=== PATIENT | female | born 1990 | race Caucasian/White ===

== ENCOUNTER 2018-03-05 02:08 | Emergency (ER) | payer MEDICAID ==
[~2018-03-05] VITALS: Ht 160 cm; Wt 68.9 kg
[2018-03-05] MEDS ORDERED: NKM (02:16)
[2018-03-05 03:54] LABS: APPEARANCE,URINE SLIGHTLY CLOUDY; BILIRUBIN, URINE NEGATIVE (NEGATIVE); COLOR,URINE PALE YELLOW; GLUCOSE, URINE (UA) NEGATIVE (NEGATIVE); KETONES,URINE NEGATIVE (NEGATIVE); LEUKOCYTE ESTERASE ,URINE 2+ (NEGATIVE); NITRITE,URINE NEGATIVE (NEGATIVE); PH,URINE 6 (4.5-8.0); PROTEIN,URINE 2+ (NEGATIVE); UROBILINOGEN,URINE NORMAL MG/DL (0.0-1.0)
[2018-03-05] MEDS ORDERED: Ketorolac 30mg Inj IV ONE (04:15)
--- NOTE | 2018-03-05 04:18 | Emergency Room Report ---
History of Present Illness General Chief Complaint: Abdominal Pain Source: Patient Present Illness HPI This patient c/o all day left flank/llq pain. Sharp, stabbing. Fairly severe. Abrupt onset. No similar history. No dysuria, urgency, frequency. No vag d/c. No other abd pain, no cp. Mild nausea, no vomiting. Allergies: Coded Allergies: No Known Allergies (Unverified , 03/05/18) Patient History Last Menstrual Period: January Nursing Documentation-[facility] Past Medical History: No Stated History Review of Systems Constitutional: Reports: no symptoms, see HPI Eye: Reports: no symptoms ENT: Reports: no symptoms Respiratory: Reports: no symptoms Cardiovascular: Reports: no symptoms Gastrointestinal: Reports: no symptoms Genitourinary: Reports: no symptoms Musculoskeletal: Reports: back pain Skin: Reports: no symptoms Psychiatric: Reports: no symptoms Neurological: Reports: no symptoms Endocrine: Reports: no symptoms Hematologic/Lymphatic: Reports: no symptoms Allergic: Reports: no symptoms Physical Exam Vital Signs Date Time Temp Pulse Resp B/P (MAP) Pulse Ox O2 Delivery O2 Flow Rate FiO2 03/05/18 02:12 98.2 98 18 118/80 100 Room Air 98.2 Sp02 EP Interpretation: reviewed, normal General Appearance: normal inspection, well appearing, no apparent distress, alert, GCS 15, non-toxic Head: normocephalic, atraumatic Eyes: bilateral eye normal inspection, bilateral eye PERRL, bilateral eye EOMI ENT: normal ENT inspection, hearing grossly normal, normal pharynx, no angioedema, normal voice, moist mucus membranes Neck: normal inspection, full range of motion, supple, no meningismus, no bony tend Respiratory: normal inspection, lungs clear, normal breath sounds, no rhonchi, no respiratory distress, no retraction, no accessory muscle use, no wheezing Cardiovascular #1: normal inspection, regular rate, rhythm, no edema Gastrointestinal: normal inspection, normal bowel sounds, non tender, soft, no mass, non-distended Genitourinary: CVA tenderness (L) Musculoskeletal: gait/station normal, normal range of motion Neurologic: normal inspection, alert, oriented x3, responsive, motor strength/ tone normal Psychiatric: normal inspection, judgement/insight normal, memory normal Suicide Risk Assessment: Suicidal Ideation: No Had intent to initiate attempt: No Pt's plan for suicide attempt: No Has means to complete attempt: No Skin: normal inspection, normal color, no rash, warm/dry Medical Decision Making Diagnostic Impression: Primary Impression: Renal colic on left side ER Course hx and physical entirely consistent with left renal colic good relief with iv toradol advised f/u pmd this week for renal us Last Vital Signs Date Time Temp Pulse Resp B/P (MAP) Pulse Ox O2 Delivery O2 Flow Rate FiO2 03/05/18 02:12 98.2 98 18 118/80 100 Room Air 98.2 Status: improved Disposition: HOME, SELF-CARE Referrals: NOT CHOSEN IPA/,REFERRING (PCP) Quentin Traylor M.D. Mar 05, 2018 04:17
[2018-03-05 04:33] LABS: HEMATOCRIT 41.3 % (37.0-47.0); HEMOGLOBIN 13.6 G/DL (12.0-16.0); MEAN CORPUSCULAR VOLUME 85 FL (80-99); PLATELET COUNT 671 K/UL (150-450); RED BLOOD COUNT 4.85 M/UL (4.20-5.40); RED CELL DISTRIBUTION WIDTH 11.9 % (11.6-14.8); WHITE BLOOD COUNT 18.3 K/UL (4.8-10.8)
[2018-03-05 04:43] LABS: ANION GAP 8 mmol/L (5-15); BLOOD UREA NITROGEN 7 mg/dL (7-18); CALCIUM 9.7 MG/DL (8.5-10.1); CARBON DIOXIDE 29 MMOL/L (21-32); CHLORIDE 100 MMOL/L (98-107); CREATININE 0.7 MG/DL (0.55-1.30); POTASSIUM 3.7 MMOL/L (3.5-5.1); SODIUM 137 MMOL/L (136-145)
[2018-03-05 04:50] VITALS: BP 104/67
[2018-03-05 05:50] VITALS: BP 104/67
== END 2018-03-05 05:50 | disposition home or self-care (01) ==
LOC: EMR 02:41
DX: N23 Unspecified renal colic (principal)
CPT/HCPCS: 36415; 80048; 81001; 84703; 85007; 85025; 87086; 96374; 99284; J1885

== ENCOUNTER 2019-09-04 10:42 | Emergency (ER) | payer MEDICAID, OTHER ==
[~2019-09-04] VITALS: Ht 162.6 cm; Wt 69.9 kg
[~2019-09-04 10:42] MED LIST: NKM
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
[2019-09-04 11:12] VITALS: BP 119/79
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
[2019-09-04] MEDS ORDERED: Acetaminophen 500mg (ES) tab ORAL ONE (11:30)
[2019-09-04] MEDS ORDERED: ROBAXIN-500MG ORAL (11:41)
[2019-09-04] MEDS ORDERED: IBUPROFEN600 MG ORAL (11:41)
--- NOTE | 2019-09-04 11:53 | NUR ---
ED Nurse Note: Pt went on CT via wheelchair accompanied by tech.
--- NOTE | 2019-09-04 12:16 | NUR ---
ED Nurse Note: Pt returned from CT on stable condition.
--- NOTE | 2019-09-04 12:59 | Diagnostic Imaging Report ---
Indication: Headache. Head trauma Technique: Contiguous 5 mm thick transaxial imaging of the head obtained in a Siemens Sensation [address] scanner. Soft tissue and bone windows generated. Automatic Exposure Control was utilized. Total Dose length Product (DLP): 1394.[address] Dose Index Volume (CTDIvol): 62.7 mGy Comparison: none Findings: The size and configuration of the cortical sulci, basal cisterns, and ventricles are within normal limits for age. There is no mass effect, midline shift, or edema identified. There are a few punctate calcifications within the brain parenchyma, which may be due to cysticercosis. There is no evidence of acute hemorrhage or abnormal intra-axial or extra-axial fluid collections. The bones and soft tissues are unremarkable. There is soft tissue swelling over the right supraorbital and frontal scalp consistent with a contusion injury. Impression: No mass effect, edema or acute bleed. Right supraorbital/frontal scalp hematoma Few parenchymal calcifications which may be due to cysticercosis. The CT scanner at [facility] is accredited by the [employer] and the scans are performed using dose optimization techniques as appropriate to a performed exam including Automatic Exposure control.
--- NOTE | 2019-09-04 13:01 | Diagnostic Imaging Report ---
Indication: Cervical trauma/pain. Technique: Continuous helical imaging of the cervical spine was obtained transaxially from the skull base to the upper thoracic spine. 2-D coronal and sagittal reformatted images were obtained. Automatic Exposure Control was utilized. Total Dose length Product (DLP): 119.[address] Dose Index Volume (CTDIvol): 4.6 mGy Comparison: None Findings: There is no evidence of an acute fracture or malalignment. Atlantoaxial alignment appears normal. Height and configuration of the vertebral bodies and intervertebral discs are within normal limits. Uncovertebral joints and facets are unremarkable. There is no soft tissue swelling. Impression: Negative cervical spine CT The CT scanner at [facility] is accredited by the [employer] and the scans are performed using dose optimization techniques as appropriate to a performed exam including Automatic Exposure control.
[2019-09-04 13:18] VITALS: BP 119/79
--- NOTE | 2019-09-04 13:18 | NUR ---
ED Nurse Note: Pt cleared by health care Provider for discharge. DC instructions/prescription was given and explained to pt and verbalized understanding of teachings. All medical devices such as ID band removed. Pt is AAO x4, ambulatory and left with all personal belongings.
== END 2019-09-04 13:18 | disposition home or self-care (01) ==
LOC: EMR 12:30
DX: S16.1XXA Strain of muscle, fascia and tendon at neck level, initial encounter (principal); S00.93XA Contusion of unspecified part of head, initial encounter; B69.0 Cysticercosis of central nervous system; V43.52XA Car driver injured in collision with other type car in traffic accident, initial encounter; Y92.410 Unspecified street and highway as the place of occurrence of the external cause
CPT/HCPCS: 70450; 72125; 81025; Z7502; 99284

== ENCOUNTER 2020-04-29 19:37 | Emergency (ER) | payer OTHER ==
[~2020-04-29] VITALS: Ht 167.6 cm; Wt 68.0 kg
[~2020-04-29 19:37] MED LIST changes: +IBUPROFEN600 MG ORAL; +ROBAXIN-500MG ORAL
[2020-04-29 19:40] VITALS: BP 129/91
[2020-04-29 20:17] LABS: APPEARANCE,URINE CLEAR; BILIRUBIN, URINE NEGATIVE (NEGATIVE); GLUCOSE, URINE (UA) NEGATIVE (NEGATIVE); KETONES,URINE NEGATIVE (NEGATIVE); LEUKOCYTE ESTERASE ,URINE 1+ (NEGATIVE); NITRITE,URINE NEGATIVE (NEGATIVE); PH,URINE 6 (4.5-8.0); PROTEIN,URINE 1+ (NEGATIVE); UROBILINOGEN,URINE NORMAL MG/DL (0.0-1.0)
[2020-04-29 20:18] LABS: BASOPHILS % (AUTO) 0.6 % (0.0-2.0); COLOR,URINE YELLOW; EOSINOPHILS % (AUTO) 0.8 % (0.0-3.0); HEMOGLOBIN 12.3 G/DL (12.0-16.0); LYMPHOCYTES % (AUTO) 30.5 % (20.0-45.0); MEAN CORPUSCULAR VOLUME 87 FL (80-99); NEUTROPHILS % (AUTO) 63.1 % (45.0-75.0); PLATELET COUNT 437 K/UL (150-450); RED BLOOD COUNT 4.15 M/UL (4.20-5.40); RED CELL DISTRIBUTION WIDTH 13.4 % (11.6-14.8); WHITE BLOOD COUNT 13.1 K/UL (4.8-10.8)
[2020-04-29 20:27] LABS: ANION GAP 11 mmol/L (5-15); BLOOD UREA NITROGEN 15 mg/dL (7-18); CALCIUM 9.2 MG/DL (8.5-10.1); CARBON DIOXIDE 23 MMOL/L (21-32); CHLORIDE 104 MMOL/L (98-107); CREATININE 0.7 MG/DL (0.55-1.30); POTASSIUM 3.6 MMOL/L (3.5-5.1); SODIUM 138 MMOL/L (136-145)
[2020-04-29 20:32] LABS: ALANINE AMINOTRANSFERASE 12 U/L (12-78); ALBUMIN 3.7 G/DL (3.4-5.0); ALBUMIN/GLOBULIN RATIO 0.9 (1.0-2.7); ALKALINE PHOSPHATASE 58 U/L (46-116); ASPARTATE AMINO TRANSFERASE 13 U/L (15-37); BILIRUBIN,TOTAL 0.2 MG/DL (0.2-1.0)
--- NOTE | 2020-04-29 20:32 | Emergency Room Report ---
History of Present Illness General Chief Complaint: Female Urogenital Problems Source: Patient Present Illness HPI The patient is at 12 weeks estimated gestational age. She is being followed in outpatient clinic for the . She is 12 weeks based on dates. She has not had an ultrasound. She states that about 2 hours ago she noted some vaginal spotting. She denies pain. She denies abnormal vaginal discharge. She has not had sexual intercourse within the last 24 hours. She denies dysuria or hematuria. She has no other complaints. Allergies: Coded Allergies: No Known Allergies (Unverified , 03/05/18) COVID-19 Screening Contact w/high risk pt: No Experienced COVID-19 symptoms?: No COVID-19 Testing performed JACKET CHANGER: No Patient History Past Medical History: none, see triage record Social History: Denies: smoking, alcohol use, drug use Now: Yes : 2 Para: 1 Reviewed Nursing Documentation: PMH: Agreed; PSxH: Agreed Nursing Documentation-PMH Past Medical History: No Stated History Review of Systems All Other Systems: negative except mentioned in HPI Physical Exam Vital Signs Date Time Temp Pulse Resp B/P (MAP) Pulse Ox O2 Delivery O2 Flow Rate FiO2 04/29/20 19:40 98.2 88 20 129/91 (104) 99 Room Air Sp02 EP Interpretation: reviewed, normal General Appearance: no apparent distress, alert, GCS 15, non-toxic Head: normocephalic, atraumatic Eyes: bilateral eye normal inspection ENT: hearing grossly normal, no angioedema, normal voice Neck: normal inspection, full range of motion Respiratory: no respiratory distress, no retraction, no accessory muscle use, speaking full sentences Cardiovascular #1: regular rate, rhythm, no edema Gastrointestinal: normal inspection, non tender, soft, non-distended, no guarding, no rebound Rectal: deferred Musculoskeletal: back normal, normal range of motion, gait/station normal, non- tender Neurologic: alert, motor strength/tone normal, oriented x3, sensory intact, responsive, speech normal Psychiatric: judgement/insight normal, memory normal, mood/affect normal, no suicidal/homicidal ideation Skin: no rash, normal color Medical Decision Making Diagnostic Impression: Primary Impression: Threatened Additional Impressions: First trimester bleeding Possible demise ER Course The ultrasound for this patient showed a pole, but no heart tones or yolk sac. Given the patient's hCG of 19,000 and the estimated gestational age by dates, I am concerned, that this is a demise. The pole is reading approximately 8 weeks. I would expect to see heart tones at this time. It is possible, that this patient is much earlier than she realizes and that this is a very early . However, I am concerned about demise. Patient just began having vaginal spotting and therefore may spontaneously pass the , however given that I cannot be sure on the gestational age, I will have this patient follow on with her primary care clinic to undergo close monitoring and if necessary termination. The patient was educated that she must follow-up within the next 24 hours at her primary clinic. Of note: The patient is O+ and so does not require RhoGam. Laboratory Tests Test 04/29/20 20:10 White Blood Count 13.1 K/UL (4.8-10.8) H Red Blood Count 4.15 M/UL (4.20-5.40) L Hemoglobin 12.3 G/DL (12.0-16.0) Hematocrit 36.0 % (37.0-47.0) L Mean Corpuscular Volume 87 FL (80-99) Mean Corpuscular Hemoglobin 29.5 PG (27.0-31.0) Mean Corpuscular Hemoglobin Concent 34.1 G/DL (32.0-36.0) Red Cell Distribution Width 13.4 % (11.6-14.8) Platelet Count 437 K/UL (150-450) Mean Platelet Volume 6.3 FL (6.5-10.1) L Neutrophils (%) (Auto) 63.1 % (45.0-75.0) Lymphocytes (%) (Auto) 30.5 % (20.0-45.0) Monocytes (%) (Auto) 5.0 % (1.0-10.0) Eosinophils (%) (Auto) 0.8 % (0.0-3.0) Basophils (%) (Auto) 0.6 % (0.0-2.0) Urine Color Yellow Urine Appearance Clear Urine pH 6 (4.5-8.0) Urine Specific [place] 1.020 (1.005-1.035) Urine Protein 1+ (NEGATIVE) H Urine Glucose (UA) Negative (NEGATIVE) Urine Ketones Negative (NEGATIVE) Urine Blood 5+ (NEGATIVE) H Urine Nitrite Negative (NEGATIVE) Urine Bilirubin Negative (NEGATIVE) Urine Urobilinogen Normal MG/DL (0.0-1.0) Urine Leukocyte Esterase 1+ (NEGATIVE) H Urine RBC 15-20 /HPF (0 - 2) H Urine WBC 0-2 /HPF (0 - 2) Urine Squamous Epithelial Cells Occasional /LPF Urine Bacteria Occasional /HPF (NONE) Urine Mucus Few /LPF (NONE/OCC) H Sodium Level 138 MMOL/L (136-145) Potassium Level 3.6 MMOL/L (3.5-5.1) Chloride Level 104 MMOL/L (98-107) Carbon Dioxide Level 23 MMOL/L (21-32) Anion Gap 11 mmol/L (5-15) Blood Urea Nitrogen 15 mg/dL (7-18) Creatinine 0.7 MG/DL (0.55-1.30) Estimated Glomerular Filtration Rate > 60 mL/min (>60) Glucose Level 93 MG/DL (74-106) Calcium Level 9.2 MG/DL (8.5-10.1) Total Bilirubin 0.2 MG/DL (0.2-1.0) Aspartate Amino Transferase (AST) 13 U/L (15-37) L Alanine Aminotransferase (ALT) 12 U/L (12-78) Alkaline Phosphatase 58 U/L (46-116) Total Protein 7.6 G/DL (6.4-8.2) Albumin 3.7 G/DL (3.4-5.0) Globulin 3.9 g/dL Albumin/Globulin Ratio 0.9 (1.0-2.7) L Human Chorionic Gonadotropin, Quant 70354 mIU/mL (1-6) H CT/MRI/US Diagnostic Results CT/MRI/US Diagnostic Results : Imaging Test Ordered: Pelvic US 1st trimester: Impression IUP with pole, but no yolk sac or FHT. See official report in the electronic medical record. Last Vital Signs Date Time Temp Pulse Resp B/P (MAP) Pulse Ox O2 Delivery O2 Flow Rate FiO2 04/29/20 19:40 98.2 88 20 129/91 (104) 99 Room Air Status: improved Disposition: HOME, SELF-CARE Condition: Stable Referrals: YRN GARCIA,REFERRING (PCP) Kaye Miller DO Apr 29, 2020 20:32
[2020-04-29 21:40] VITALS: BP 133/85
--- NOTE | 2020-04-29 21:43 | Diagnostic Imaging Report ---
EXAM: US , Transvaginal CLINICAL HISTORY: ABD PAIN TECHNIQUE: Real-time transvaginal obstetrical ultrasound of the maternal pelvis and a first trimester with image documentation. Transvaginal imaging was used for better evaluation of the fetus and adnexa. COMPARISON: No relevant prior studies available. FINDINGS: Intrauterine gestational sac identified containing a pole. The crown-rump length is 1.8 cm corresponding to an ultrasound date of 8 weeks and 2 days. No yolk sac visualized. No heart rate is detected. Normal grayscale and color Doppler appearance of the right ovary. The left ovary was unable to be visualized. No free fluid identified within the of the cul-de-sac. IMPRESSION: 1. Intrauterine with ultrasound dating of 8 weeks and 2 days. No heart rate/cardiac activity seen, which is expected in a of this age. Findings may represent a failed but correlate with serial beta-hCG and follow-up ultrasound for confirmation. 2. Normal appearance of the right ovary. The left ovary was unable to be visualized.
--- NOTE | 2020-04-29 21:50 | Diagnostic Imaging Report ---
EXAM: US , Transvaginal CLINICAL HISTORY: ABD PAIN TECHNIQUE: Real-time transvaginal obstetrical ultrasound of the maternal pelvis and a first trimester with image documentation. Transvaginal imaging was used for better evaluation of the fetus and adnexa. COMPARISON: No relevant prior studies available. FINDINGS: Intrauterine gestational sac identified containing a pole. The crown-rump length is 1.8 cm corresponding to an ultrasound date of 8 weeks and 2 days. No yolk sac visualized. No heart rate is detected. Normal grayscale and color Doppler appearance of the right ovary. The left ovary was unable to be visualized. No free fluid identified within the of the pelvic cul-de-sac. IMPRESSION: 1. Intrauterine with ultrasound dating of 8 weeks and 2 days. No heart rate/cardiac activity seen, which is expected in a of this age. Findings may represent a failed but correlate with serial beta-hCG and follow-up ultrasound for confirmation. 2. Normal appearance of the right ovary. The left ovary was unable to be visualized.
== END 2020-04-29 21:40 | disposition home or self-care (01) ==
LOC: EMR 20:04
DX: O20.0 Threatened abortion (principal); Z3A.08 8 weeks gestation of pregnancy
CPT/HCPCS: 36415; 76801; 76817; 80053; 81003; 84702; 85025; 86850; 86900; 86901; 96360; 96361; J7030; Z7502; 99284